=== PATIENT | male | born 1995 | race African-American/Black ===

== ENCOUNTER 2020-10-22 10:51 | Emergency (ER) | payer SELFPAY ==
[~2020-10-22] VITALS: Ht 172.7 cm; Wt 106.1 kg
[2020-10-22] MEDS ORDERED: LISI20TA35 PO (10:58)
--- NOTE | 2020-10-22 11:18 | REP ---
INDICATION: trauma COMPARISON: None. TECHNIQUE: Internal rotation, external rotation, and Y view. FINDINGS: No acute fracture or dislocation. The acromioclavicular and glenohumeral joints are intact. No periarticular calcifications or degenerative changes are appreciated. Sub acromial space is normal. Surrounding soft tissues are unremarkable. IMPRESSION: Normal left shoulder radiographs. <Electronically signed by Albert Hanna > 10/22/20 [id number]
[2020-10-22] MEDS ORDERED: CETI10TA4 PO (11:19)
[2020-10-22] MEDS ORDERED: ERYT5OIN25 OP (11:19)
[2020-10-22] MEDS ORDERED: IBUP80TA PO (12:02)
[2020-10-22 12:21] VITALS: BP 144/97
== END 2020-10-22 12:32 | disposition home or self-care (01) ==
LOC: M ED 10:51
DX: S43.402A Unspecified sprain of left shoulder joint, initial encounter (principal); W19.XXXA Unspecified fall, initial encounter; Y92.89 Other specified places as the place of occurrence of the external cause; Y99.0 Civilian activity done for income or pay; I10 Essential (primary) hypertension; Z79.899 Other long term (current) drug therapy